=== PATIENT | male | born 1980 | race African-American/Black ===

== ENCOUNTER 2017-06-14 10:50 | Emergency (ER) | payer BC ==
[2017-06-14 11:08] VITALS: BP 107/64; PULSE 91; RESP 22; TEMP 98; O2SAT 94
[2017-06-14] MEDS ORDERED: CARV3.125 PO (11:31)
[2017-06-14] MEDS ORDERED: FURO1TAB61 PO (11:31)
[2017-06-14] MEDS ORDERED: ZOLO50TA PO (11:31)
[2017-06-14] MEDS ORDERED: LISI-519 PO (11:31)
[2017-06-14] MEDS ORDERED: PROT40TA PO (11:31)
[2017-06-14] MEDS ORDERED: MULT-65 PO (11:31)
[2017-06-14] MEDS ORDERED: FERR325C PO (11:31)
[2017-06-14] MEDS ORDERED: LEVO.1 PO (11:31)
[2017-06-14] MEDS ORDERED: XARE20TA PO (11:31)
[2017-06-14] MEDS ORDERED: K-TA10TA PO (11:31)
--- NOTE | 2017-06-14 11:49 | PD ---
HPI Chief Complaint: Respiratory Symptoms Time Seen by Provider: 11:04 Travel History International Travel<30 days: No Contact w/Intl Traveler<30days: No Traveled to known affect area: No History of Present Illness HPI This is a 36-year-old male who has a history of morbid obesity who presents on 5 L of oxygen at home who presents to the emergency department having been traveling from [place] ago on a cruise from [place] when his oxygen concentrator stopped working. He was inhaling from his oxygen machine but it wasn't giving him any air. Patient denies any acute dyspnea or chest pain and has no other physical complaints. This is been going on for about an hour, constant, moderate severity. He feels much better now but easily emergency department on 5 L of oxygen. PFSH Past Medical History Anemia: Yes Depression: Yes Cardiovascular Problems: Yes (HX OF PE) Diminished Hearing: No GERD: Yes Hypertension: Yes Respiratory: Yes (O2 5L VIA N/C) Sleep Apnea: Yes Thyroid Disease: Yes Influenza Vaccination: No ?: Not Past Surgical History Other Surgery: Yes (TRACH DUE TO RESP FAILURE) Social History Alcohol Use: No Tobacco Use: No Allergies-Medications (Allergen,Severity, Reaction): Coded Allergies: No Known Allergies (Unverified , 06/14/17) Reported Meds & Prescriptions Reported Meds & Active Scripts Active Reported Multi-Vitamin Daily (Multiple Vitamin) 1 Tab Tab 1 Tab PO DAILY Iron (Ferrous Sulfate) 325 Mg Cap 325 Mg PO TIDPC Zoloft (Sertraline HCl) 50 Mg Tab 50 Mg PO DAILY Synthroid (Levothyroxine Sodium) 100 Mcg Tab 100 Mcg PO DAILY Protonix (Pantoprazole Sodium) 40 Mg Tab 40 Mg PO DAILY K-Tab (Potassium Chloride) 10 Meq Tab 10 Meq PO BID Lasix (Furosemide) 80 Mg Tab 80 Mg PO BID Coreg (Carvedilol) 3.125 Mg Tab 3.125 Mg PO BID Lisinopril 5 Mg Tab 7.5 Mg PO DAILY Xarelto (Rivaroxaban) 20 Mg Tab 20 Mg PO DAILY Review of Systems Except as stated in HPI: all other systems reviewed are Neg Physical Exam Narrative GENERAL:morbidly obese SKIN: Focused skin assessment warm and dry. HEAD: Atraumatic. Normocephalic. EYES: Pupils equal and round. No injection or drainage. ENT: Moist mucous membranes NECK: Trachea midline. CARDIOVASCULAR: Regular rate and rhythm. No murmur appreciated. RESPIRATORY: Clear to auscultation. Breath sounds equal bilaterally. GASTROINTESTINAL: Abdomen soft, non-tender, nondistended. MUSCULOSKELETAL: No obvious deformities. NEUROLOGICAL: Awake and alert. No obvious cranial nerve deficits. Moving all extremities. PSYCHIATRIC: Appropriate mood and affect; insight and judgment normal. Data Data Last Documented VS Vital Signs Date Time Temp Pulse Resp B/P (MAP) Pulse Ox O2 Delivery O2 Flow Rate FiO2 06/14/17 14:10 91 20 95 Nasal Cannula 5.00 06/14/17 11:08 98.0 107/64 (78) MDM Medical Decision Making Medical Screen Exam Complete: Yes Emergency Medical Condition: Yes Differential Diagnosis Obesity hypoventilation syndrome, pulmonary embolism, pneumonia Narrative Course This is a 36-year-old male who presents to the emergency department with hypoxia. He has baseline hypoxia as he has obesity hypoventilation syndrome and has a history of pulmonary embolism. He had rented a 5 L oxygen concentrator but it stopped working well he was driving down to [place] to go on a cruise. Patient has no complaints and feels much better on his baseline 5 L of oxygen. He is requesting transport home which was coordinated by case management. I don't think he requires any diagnostic testing. He'll be discharged. Diagnosis Primary Impression: Hypoxia Patient Instructions: General Instructions Med/Other Pt SpecificInfo: No Change to Meds Disposition: 01 DISCHARGE HOME Condition: Stable Jeanne Helton MD Jun 14, 2017 11:49
[2017-06-14 14:10] VITALS: PULSE 91; RESP 20; O2SAT 95
[2017-06-14 16:21] VITALS: PULSE 88; RESP 20; O2SAT 95
== END 2017-06-14 22:13 | disposition home or self-care (01) ==
LOC: PHED 10:50 → PHEFT 22:13
DX: R09.02 Hypoxemia (principal); E66.01 Morbid (severe) obesity due to excess calories; I10 Essential (primary) hypertension; Z86.711 Personal history of pulmonary embolism; Z99.81 Dependence on supplemental oxygen
CPT/HCPCS: 99281